=== PATIENT | male | born 1970 | race Hispanic/Latino ===

== ENCOUNTER 2021-03-11 12:20 | Outpatient (CLI) | payer OTHER ==
[2021-03-11 13:30] LABS: #Basophils 0.1 10x3/uL (0.0-0.2); #Eosinphils 0.1 10x3/uL (0.0-0.5); #Monocytes 0.5 10x3/uL (0.0-1.1); #Neutrophils 4.7 10x3/uL (1.5-8.4); %Basophils 0.8 % (0.0-2.0); %Eosinophils 1.7 % (0.0-6.0); %Lymphocytes 24.7 % (18.0-47.0); %Monocytes 7.3 % (0.0-10.0); %Neutrophils 65.2 % (40.0-75.0); Hemoglobin 14.8 g/dL (13.5-17.5); Mean Corpuscular HGB CONC 33.2 g/dL (32.0-36.0); Mean Corpuscular Volume 84.5 fl (81.2-95.1); Mean Platelet Volume 10.4 fl (7.4-10.4); Platelet Count 295 10x3/uL (150-450); RBC Distribution Width 12.7 % (11.5-14.5); Red Blood Cell (RBC) Count 5.28 10x6/uL (4.32-5.72); White Blood Cell (WBC) Count 7.2 10x3/uL (3.5-10.5)
[2021-03-11 14:11] LABS: Anion Gap 14 mmol/L (10-20); BUN (Urea Nitrogen) 13 mg/dL (8.4-25.7); Calc. Creatinine Clearance 0 mL/min (70-130); Calcium 9.3 mg/dL (7.8-10.44); Carbon Dioxide 26 mmol/L (22-29); Chloride 104 mmol/L (98-107); Glucose 80 mg/dL (70-105); Potassium 4.5 mmol/L (3.5-5.1); Sodium 139 mmol/L (136-145)
[2021-03-12 11:36] LABS: SARS-CoV-2 PCR by NAA Not Detected (NotDetected)
== END 2021-03-11 12:21 | disposition home or self-care (01) ==
LOC: LABBT 12:20
PROVIDERS: ATTEND Specialist
DX: Z01.812 Encounter for preprocedural laboratory examination (principal); K64.8 Other hemorrhoids; Z20.822 Contact with and (suspected) exposure to COVID-19
CPT/HCPCS: 80048; 85025; U0003; U0005

== ENCOUNTER 2021-03-14 05:54 | Day surgery (SDC) | payer OTHER ==
[2021-03-07 13:49] VITALS: BMI 35.0
[2021-03-14] MEDS ORDERED: Ketorolac Tromethamine 30 MG/ML VIAL ONE (06:16)
[2021-03-14] MEDS ORDERED: ceFAZolin 2 GM/DEX 5% 100 ML BAG ONE (06:16)
[2021-03-14] MEDS ORDERED: Acetaminophen 500 MG TAB ONE (06:16)
[2021-03-14] MEDS ORDERED: Fentanyl 100 MCG/2 ML VIAL ONE (06:39)
[2021-03-14] MEDS ORDERED: Midazolam HCl 2 mg/2 ml Vial ONE (06:39)
[2021-03-14] MEDS ORDERED: HYDROmorphone 2 MG/ML VIAL ONE (06:40)
[2021-03-14] MEDS ORDERED: Bupivacaine PF 0.5% 30 ML VIAL ONE ×2 (06:43→08:18)
[2021-03-14] MEDS ORDERED: EPINEPHrine 1 MG/ML AMP ONE ×2 (06:43→08:18)
[2021-03-14] MEDS ORDERED: Bupivacaine 0.25% 10 ML VIAL ONE (06:43)
[2021-03-14] MEDS ORDERED: Sodium Chloride 0.9% 10 ML ONE (06:44)
[2021-03-14] MEDS ORDERED: Lidocaine 1% PF 5 ML VIAL ONE (07:33)
[2021-03-14] MEDS ORDERED: Ondansetron PF 4 MG/2 ML Vial ONE (07:33)
[2021-03-14] MEDS ORDERED: PROPOFOL 200 MG/20 ML VIAL ONE (07:33)
[2021-03-14] MEDS ORDERED: Dexamethasone 20 MG/5 ML VIAL ONE (07:33)
== END 2021-03-14 10:51 | disposition home or self-care (01) ==
LOC: SDC 05:54
PROVIDERS: ATTEND Specialist
PROC: 06BY0ZC Excision of Hemorrhoidal Plexus, Open Approach (ICD-10-PCS; principal; 2021-03-14)
DX: K64.8 Other hemorrhoids (principal); K64.4 Residual hemorrhoidal skin tags
CPT/HCPCS: J0171; J1100; J1170; J1885; J2250; J2405; J2704; J3010; S0020